=== PATIENT | male | born 1955 | race Caucasian/White ===

== ENCOUNTER 2018-04-28 06:31 | Day surgery (SDC) | payer OTHER ==
[2018-04-28] MEDS ORDERED: KETOROLAC 30 MG/ML VIAL ONE (07:39)
[2018-04-28] MEDS ORDERED: LIDOCAINE 2% 100 MG/5 ML UJET TP ONE ×2 (07:39→08:45)
[2018-04-28] MEDS ORDERED: fentaNYL 0.05 MG/ML VIAL ONE (07:47)
[2018-04-28] MEDS ORDERED: MIDAZOLAM 2 MG/2 ML VIAL ONE ×2 (08:32→08:51)
[2018-04-28] MEDS ORDERED: MIDAZOLAM 2 MG/2 ML VIAL IVP ONE (09:45)
[2018-04-28] MEDS ORDERED: fentaNYL 0.05 MG/ML VIAL IVP ONE (09:45)
== END 2018-04-28 10:00 | disposition home or self-care (01) ==
LOC: MMU 06:31 → MTU 06:31 → MDS 06:31
PROVIDERS: ATTEND Internal Medicine Gastroenterology
DX: Z12.11 Encounter for screening for malignant neoplasm of colon (principal); D12.5 Benign neoplasm of sigmoid colon; K63.89 Other specified diseases of intestine; G43.909 Migraine, unspecified, not intractable, without status migrainosus; E66.3 Overweight; Z72.89 Other problems related to lifestyle; Z79.1 Long term (current) use of non-steroidal anti-inflammatories (NSAID); Z79.899 Other long term (current) drug therapy; Z98.890 Other specified postprocedural states; Z98.41 Cataract extraction status, right eye; Z98.42 Cataract extraction status, left eye; Z80.0 Family history of malignant neoplasm of digestive organs
CPT/HCPCS: 45385; J2250; J3010; J1885